=== PATIENT | female | born 1940 | race Caucasian/White ===

== ENCOUNTER 2022-01-23 00:57 | Emergency (ER) | payer MEDICARE ==
[~2022-01-23] VITALS: Ht 167.6 cm; Wt 83.9 kg
== END 2022-01-23 04:00 | disposition home or self-care (01) ==
LOC: ER 00:57
DX: M54.50 Low back pain, unspecified (principal); Z88.8 Allergy status to other drugs, medicaments and biological substances
CPT/HCPCS: A9270; J1885

== ENCOUNTER 2023-01-10 11:59 | Emergency (ER) | payer OTHER ==
[~2023-01-10] VITALS: Ht 170.2 cm; Wt 74.8 kg
[2023-01-10 13:07] LABS: BASOPHILS ABSOLUTE AUTO 0.03 K/mm3 (0.00-0.23); BASOPHILS PERCENT AUTO 1 % (0-2); EOSINOPHILS ABSOLUTE AUTO 0.18 K/mm3 (0.00-0.68); EOSINOPHILS PERCENT AUTO 3 % (0-6); Hematocrit 41.8 % (33.0-51.0); Hemoglobin 13.9 g/dL (11.5-16.0); IMMATURE GRAN ABSOLUTE AUTO 0.02 K/mm3 (0.00-0.10); IMMATURE GRAN PERCENT AUTO 0 % (0-1); LYMPHOCYTES ABSOLUTE AUTO 1.74 K/mm3 (0.84-5.20); LYMPHOCYTES PERCENT AUTO 29 % (21-46); MONOCYTES ABSOLUTE AUTO 0.37 K/mm3 (0.16-1.47); MONOCYTES PERCENT AUTO 6 % (4-13); Mean Corpuscular HGB 31.1 pg (26.0-34.0); Mean Corpuscular HGB Conc 33.3 g/dL (31.5-36.5); Mean Corpuscular Volume 94 fL (80-100); Mean Platelet Volume 9.1 fL (9.1-12.4); NEUTROPHILS ABSOLUTE AUTO 3.72 K/mm3 (1.96-9.15); NEUTROPHILS PERCENT AUTO 61 % (41-73); Platelet Count 255 K/mm3 (150-400); RDW Coefficient Variation 12.1 % (11.7-14.2); RDW Standard Deviation 41.4 fL (35.1-46.3); Red Blood Cell Count 4.47 M/mm3 (3.80-5.20); White Blood Cell Count 6.06 K/mm3 (4.00-11.30)
[2023-01-10 13:29] LABS: Albumin, Blood 3.3 g/dL (3.4-5.0); Albumin/Globulin Ratio 0.8 (0.8-1.8); Bilirubin, Total 0.4 mg/dL (0.1-1.0); Bun/Creatinine Ratio 15.8 (12.0-20.0); Calcium, Blood 8.6 mg/dL (8.5-10.1); Creatinine, Blood 0.82 mg/dL (0.40-1.00); Potassium, Blood 4.2 mmol/L (3.5-5.5); Total Protein, Blood 7.3 g/dL (6.4-8.2)
[2023-01-10] MEDS ORDERED: METOPROLOL SUCC25 MG (15:29)
[2023-01-10] MEDS ORDERED: JARDIANCE25 MG (15:29)
[2023-01-10] MEDS ORDERED: LOSA25 PO (15:29)
[2023-01-10] MEDS ORDERED: METFORMIN HCL500 M3 (15:29)
[2023-01-10] MEDS ORDERED: MECL25 PO (19:04)
[2023-01-10 19:30] VITALS: BP 134/61
== END 2023-01-10 19:45 | disposition home or self-care (01) ==
LOC: ER 11:59
PROVIDERS: Student in an Organized Health Care Education/Training Program
DX: R42 Dizziness and giddiness (principal); R53.1 Weakness; I10 Essential (primary) hypertension; E11.9 Type 2 diabetes mellitus without complications; I34.0 Nonrheumatic mitral (valve) insufficiency; Z79.84 Long term (current) use of oral hypoglycemic drugs; Z79.899 Other long term (current) drug therapy; Z88.8 Allergy status to other drugs, medicaments and biological substances; Z79.01 Long term (current) use of anticoagulants
CPT/HCPCS: 70450; 70551; 80053; 85025; 85730; A9270

== ENCOUNTER → 2023-07-27 | Outpatient (CLI) | payer OTHER ==
[~2023-07-27] MED LIST: JARDIANCE25 MG; LOSA25 PO; MECL25 PO; METFORMIN HCL500 M3; METOPROLOL SUCC25 MG
[2023-07-28 11:46] LABS: Candida species (DNA Probe) Negative (NEGATIVE); G. vaginalis (DNA Probe) Negative (NEGATIVE); T. vaginalis (DNA Probe) Negative (NEGATIVE)
== END ==
LOC: LAB 14:30 → LAB SHORT 14:30
PROVIDERS: Internal Medicine
DX: N76.0 Acute vaginitis (principal)
CPT/HCPCS: 87480; 87510; 87660

== ENCOUNTER → 2024-12-11 | Outpatient (CLI) | payer OTHER | LOC: LAB SHORT 13:47 → LAB 13:47 | DX: H02.825 Cysts of left lower eyelid (principal); L72.0 Epidermal cyst | CPT/HCPCS: 88304 ==

== ENCOUNTER → 2025-03-24 | Outpatient (CLI) | payer OTHER ==
[2025-03-24 21:35] LABS: Creatinine, Urine Random 65.4 mg/dL (27.00-270.00); Microalb/Creat Ratio UR, Rand 24.159 mg/g (0.000-30.000); Microalbumin, Random Urine 15.8 mg/L (0.000-20.000)
== END | disposition home or self-care (01) ==
LOC: LAB 17:47 → LAB SHORT 17:47
PROVIDERS: Internal Medicine
DX: E11.69 Type 2 diabetes mellitus with other specified complication (principal); E78.2 Mixed hyperlipidemia
CPT/HCPCS: 82043; 82570